=== PATIENT | male | born 1995 | race Caucasian/White ===

== ENCOUNTER 2016-07-28 12:42 | Emergency (ER) | payer SELFPAY ==
[~2016-07-28] VITALS: Ht 182.9 cm; Wt 63.5 kg
[~2016-07-28 12:42] MED LIST: OMEP40CA36 PO; ONDA8TAB13 PO; SULF1TAB35 PO
[2016-07-28 13:07] VITALS: BP 124/74
--- NOTE | 2016-07-28 13:29 | Diagnostic Imaging Report ---
INDICATION: Right ankle pain. AP, oblique, and lateral views of the right ankle are obtained. No fracture or acute bony abnormality is seen. IMPRESSION: Negative right ankle. Dictated by: Dictated on workstation # [id number]
--- NOTE | 2016-07-28 13:42 | ED Lower Extremity ---
General Chief Complaint: Lower Extremity Stated Complaint: R FOOT PAIN Nursing Triage Note: PT REPORTS HE WAS "PLAYING WITH FRIENDS" ON WEDNESDAY AND ROLLED HIS ANKLE. PT AMBULATES WITHOUT ASSISTANCE. Nursing Sepsis Screen: No Definite Risk History of Present Illness Time seen by provider: 13:30 Initial Comments Patient reports rolling his ankle on 07/26/16. He has been able to continue with normal ADLs and work, minimal discomfort in the right ankle. 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 He is taking ibuprofen for the pain in his right ankle. He reports spraining his ankle one time in [employer]. No other injuries to his right ankle. He has an ankle brace that he has been wearing, he reports that it is helping with the discomfort. Onset: other (2 days ago) Pain/Injury Location: right ankle Method of Injury: twisted Modifying Factors: Improves With Cold Therapy, Improves With Immobilization, Improves With Pain Medication (ibuprofen 600 mg every 6-8 hours), Improves With Rest Allergies and Home Medications Allergies Coded Allergies: No Known Allergies (Verified Allergy, Unknown, 06/16/06) Home Medications Sulfamethoxazole/Trimethoprim 1 Each Tablet, 1 EACH PO BID, #14 Ref 0 Prescribed by: MARIA TERESA MANCIA on 02/03/161801 Date Seen by Provider: Jul 28, 2016 Time Seen by Provider: 13:30 Constitutional: no symptoms reported, see HPI EENTM: no symptoms reported, see HPI Respiratory: no symptoms reported, see HPI Cardiovascular: no symptoms reported, see HPI Gastrointestinal: no symptoms reported, see HPI Genitourinary: no symptoms reported, see HPI Musculoskeletal: see HPI, joint pain (right ankle), joint swelling, muscle pain Skin: no symptoms reported, see HPI Psychiatric/Neurological: No Symptoms Reported, See HPI All Other Systems Reviewed Negative Unless Noted: Yes Past Brzlukn-Onsktf-Kkmucw Hx Patient Social History Alcohol Use: Denies Use Recreational Drug Use: No Smoking Status: Never a Smoker 2nd Hand Smoke Exposure: No Recent Foreign Travel: No Contact w/Someone Who Travel: No Recent Infectious Disease Expo: No Recent Hopitalizations: No Immunizations Up To Date Tetanus Booster (TDap): Less than 5yrs Surgeries HX Surgeries: No Respiratory Hx Respiratory Disorders: No Cardiovascular Hx Cardiac Disorders: No Neurological Hx Neurological Disorders: No Reproductive System Hx Reproductive Disorders: No Sexually Transmitted Disease: No Genitourinary Hx Genitourinary Disorders: No Gastrointestinal Hx Gastrointestinal Disorders: No Musculoskeletal Hx Musculoskeletal Disorders: No Endocrine Hx Endocrine Disorders: No HEENT HX ENT Disorders: No Loss of Vision: Denies Hearing Impairment: Denies Cancer Hx Cancer: No Psychosocial Hx Psychiatric Problems: Yes Behavioral Health Disorders: ADD/ADHD Integumentary HX Skin/Integumentary Disorder: No Blood Transfusions Hx Blood Disorders: No Reviewed Nursing Assessment Reviewed/Agree w Nursing PMH: Yes Family Medical History Significant Family History: No Pertinent Family Hx Family Medial History: Asthma G8 BROTHER Cardiovascular disease 19 MOTHER (neurocardiogenic syncope) No Family History of: Cataracts Physical Exam Vital Signs Vital Sign - Last 12Hours 07/28/16 13:07 Temp 98.1 Pulse 75 Resp 16 B/P (MAP) 124/74 Pulse Ox 98 O2 Delivery Room Air Capillary Refill : Less Than 3 Seconds General Appearance: WD/WN, no apparent distress Neck: full range of motion, normal inspection Cardiovascular: regular rate, rhythm, no edema, no JVD, no murmur Respiratory: chest non-tender, lungs clear, normal breath sounds Ankles: left ankle non-tender, left ankle normal inspection, left ankle normal range of motion, left ankle no evidence of injury, right ankle bone tenderness, right ankle ecchymosis (medial and lateral aspects of the right ankle), right ankle limited range of motion, right ankle pain (over ATFL ), right ankle soft tissue tenderness (lateral ankle), right ankle swelling, right ankle other ( trace laxity with anterior drawer and talar tilt.) Feet: bilateral foot non-tender, bilateral foot normal inspection, bilateral foot normal range of motion, bilateral foot no evidence of injury Neurologic/Tendon: normal sensation, normal motor functions, normal tendon functions, responds to pain, no evidence tendon injury Neurologic/Psychiatric: no motor/sensory deficits, alert, normal mood/affect, oriented x 3 Skin: normal color, warm/dry Progress/Results/Core Measures Results/Orders My Orders Orders - NORRIS SPAULDING Ankle, Right, 3 Views (07/28/16 13:05) Vital Signs/I&O Vital Sign - Last 12Hours 07/28/16 13:07 Temp 98.1 Pulse 75 Resp 16 B/P (MAP) 124/74 Pulse Ox 98 O2 Delivery Room Air Blood Pressure Mean: 91 Diagnostic Imaging Diagonstic Imaging: Xray Plain Films/CT/US/NM/MRI: ankle Comments NAME: NUHA DAUGHERTY [facility] REC#: [id number] PT STATUS: REG ER : 1995 PHYSICIAN: NORRIS SAPULDING ADMIT DATE: 07/28/16/ER Draft Date of Exam:07/28/16 ANKLE, RIGHT, 3 VIEWS INDICATION: Right ankle pain. AP, oblique, and lateral views of the right ankle are obtained. No fracture or acute bony abnormality is seen. IMPRESSION: Negative right ankle. Dictated on workstation # [id number] Dict: 07/28/16 1326 Trans: 07/28/16 1328 [id number] Interpreted by: WILFRIDO ZARATE MD Electronically signed by: Departure Impression Impression: Primary Impression: Right ankle sprain Qualified Codes: S93.431A - Sprain of tibiofibular ligament of right ankle, initial encounter Disposition: HOME, SELF-CARE Condition: Stable Departure-Patient Inst. Decision time for Depature: 13:35 Referrals: NO,LOCAL PHYSICIAN (PCP/Family) Primary Care Physician Patient Instructions: Ankle Sprain (DC) Add. Discharge Instructions: Ice to right ankle 20 minutes every 2 hours. Alternate between Tylenol 650 mg and ibuprofen 600 mg every 4 hours. Elevate right ankle higher than the heart for 20-30 minutes every 2 hours. Continue to wear Garret wrap and ankle brace for approximately 2-3 weeks. Then wean out of it. Follow-up in 2 weeks with primary care provider if symptoms are not improving. Return to emergency department for new injury to the ankle, new problems or concerns. All discharge instructions reviewed with patient and/or family. Voiced understanding. Work/School Note: Work Release Form Date Seen in the Emergency Department: Jul 28, 2016 Return to Work: Jul 29, 2016 Restrictions: No Restrictions Other Restrictions Listed Below: Ice and elevate right ankle on breaks NORRIS SPAULDING Jul 28, 2016 13:42
== END 2016-07-28 13:46 | disposition home or self-care (01) ==
LOC: EDUNIT# 12:42 → ER 12:44
DX: S93.401A Sprain of unspecified ligament of right ankle, initial encounter (principal); X50.1XXA Overexertion from prolonged static or awkward postures, initial encounter; Y93.89 Activity, other specified
CPT/HCPCS: 73610; 99283

== ENCOUNTER 2017-02-24 12:20 | Emergency (ER) | payer SELFPAY ==
[~2017-02-24] VITALS: Ht 182.9 cm; Wt 65.8 kg
[2017-02-24] MEDS ORDERED: IBUPROFEN TABLET 200 MG TAB PO STA (12:46)
--- NOTE | 2017-02-24 13:10 | ED Cough/URI ---
General Chief Complaint: Cough/Cold/Flu Symptoms Stated Complaint: FEVER/COUGH/N/V Nursing Triage Note: ARRIVED VIA AMB TO ROOM 09. STATES HE THINKS HE HAS THE FLU. COMPLAINS OF FEVER AND COUGH ET STATES HE VOMITED ONCE TODAY. FEVER STARTING YESTERDAY. History of Present Illness Time seen by provider: 12:55 Initial Comments 21 year old male presents for cough and fever. He had nausea yesterday and vomited once earlier today. He denies nausea at this time. He did not receive an influenza vaccine this year. Timing/Duration: yesterday Severity/Quality: moderate, productive cough Prior Episodes/Possible Cause: no prior episodes Modifying Factors: Improves With Coughing, Improves With Rest Associated Symptoms: cough, fever/chills, nasal congestion Allergies and Home Medications Allergies Coded Allergies: No Known Allergies (Verified Allergy, Unknown, 06/16/06) Home Medications No Active Prescriptions or Reported Meds Constitutional: see HPI, fever, malaise EENTM: no symptoms reported, nose congestion Respiratory: see HPI, cough, phlegm Cardiovascular: no symptoms reported, see HPI Gastrointestinal: see HPI, loss of appetite, nausea Genitourinary: no symptoms reported, see HPI All Other Systems Reviewed Negative Unless Noted: Yes Past Gtryivz-Dwlygm-[place] Hx Patient Social History Alcohol Use: Occasionally Uses Alcohol Beverage of Choice: Whiskey Recreational Drug Use: No Smoking Status: Current Everyday Smoker 2nd Hand Smoke Exposure: No Recent Foreign Travel: No Contact w/Someone Who Travel: No Recent Infectious Disease Expo: No Recent Hopitalizations: No Immunizations Up To Date Tetanus Booster (TDap): Less than 5yrs Surgeries History of Surgeries: No Respiratory History of Respiratory Disorde: No Cardiovascular History of Cardiac Disorders: No Neurological History of Neurological Disord: No Reproductive System Hx Reproductive Disorders: No Sexually Transmitted Disease: No Genitourinary History of Genitourinary Disor: No Gastrointestinal History of Gastrointestinal Di: No Musculoskeletal History of Musculoskeletal Dis: No Endocrine History of Endocrine Disorders: No HEENT Loss of Vision: Denies Hearing Impairment: Denies Cancer History of Cancer: No Psychosocial History of Psychiatric Problem: Yes Behavioral Health Disorders: ADD/ADHD Integumentary History of Skin or Integumenta: No Blood Transfusions History of Blood Disorders: No Reviewed Nursing Assessment Reviewed/Agree w Nursing PMH: Yes Family Medical History Significant Family History: No Pertinent Family Hx Family Medial History: Asthma G8 BROTHER Cardiovascular disease 19 MOTHER (neurocardiogenic syncope) No Family History of: Cataracts Physical Exam Vital Signs Vital Sign - Last 12Hours 02/24/17 12:31 Temp 100.5 Pulse 95 Resp 18 B/P (MAP) 118/80 (93) Pulse Ox 96 O2 Delivery Room Air Capillary Refill : Less Than 3 Seconds General Appearance: WD/WN, no apparent distress Eyes: Bilateral Eye Normal Inspection, Bilateral Eye PERRL, Bilateral Eye EOMI HEENT: PERRL/EOMI, normal ENT inspection, TMs normal, pharynx normal Neck: non-tender, full range of motion, supple, No lymphadenopathy (R), No lymphadenopathy (L) Respiratory: chest non-tender, no respiratory distress, no accessory muscle use Cardiovascular: normal peripheral pulses, regular rate, rhythm, no murmur Gastrointestinal: normal bowel sounds, non tender, soft, No distended, No guarding, No rebound, No tenderness Neurologic/Psychiatric: no motor/sensory deficits, alert, normal mood/affect ( appropriate for age), oriented x 3 Skin: normal color, warm/dry Lymphatic: no adenopathy Progress/Results/Core Measures Suspected Sepsis Recent Fever Within 48 Hours: Yes Infection Criteria Present: Suspected New Infection New/Unexplained Altered Menta: No Sepsis Screen: Possible Sepsis Risk Sepsis Diagnosis: SIRS Temperature:100.5 Pulse: 95 Respiratory Rate: 18 Blood Pressure 118 /80 Mean: 93 Results/Orders Micro Results Microbiology 02/24/17 Influenza Types A,B Antigen ([facility]) - Final, Complete My Orders Orders - NORRIS SPAULDING Ibuprofen Tablet (Motrin Tablet) (02/24/17 12:46) Influenza A And B Antigens (02/24/17 12:46) Vital Signs/I&O Vital Sign - Last 12Hours 02/24/17 02/24/17 12:31 13:15 Temp 100.5 100.1 Pulse 95 95 Resp 18 18 B/P (MAP) 118/80 (93) Pulse Ox 96 96 O2 Delivery Room Air Capillary Refill : Less Than 3 Seconds Blood Pressure Mean: 93 Progress Note : Time: 12:55 Progress Note Initial evaluation completed, influenza swab, ibuprofen 600 mg by mouth. 1305 discussed influenza A results with the patient and his mother, offered Tamiflu for conservative treatment. They opted for conservative options. Discharge and return precautions reviewed with patient and his mother. All questions answered. Departure Impression Impression: Primary Impression: Influenza A Additional Impression: Fever Qualified Codes: R50.81 - Fever presenting with conditions classified elsewhere Disposition: 01 HOME, SELF-CARE Condition: Stable Departure-Patient Inst. Decision time for Depature: 13:10 Referrals: NO,LOCAL PHYSICIAN (PCP/Family) Primary Care Physician Patient Instructions: Fever, Adult (DC), Flu, Adult (DC), Viral Upper Respiratory Infection, Adult (DC) Add. Discharge Instructions: Alternate Tylenol 650 mg and ibuprofen 600 mg every 4 hours. Rest. Increase fluid intake. Avoid social crowds and don't share drinks/utensils. Follow-up with primary care provider if no improvement in symptoms in 2-3 days. Return to emergency department if difficulty breathing, fever greater than 101 not relieved by Tylenol or ibuprofen, new problems or concerns. All discharge instructions reviewed with patient and/or family. Voiced understanding. Scripts No Active Prescriptions or Reported Meds NORRIS SPAULDING Feb 24, 2017 13:10
[2017-02-24 13:15] VITALS: BP 118/80
== END 2017-02-24 13:15 | disposition home or self-care (01) ==
LOC: EDUNIT# 12:20 → ER 12:22
DX: J10.1 Influenza due to other identified influenza virus with other respiratory manifestations (principal); F90.9 Attention-deficit hyperactivity disorder, unspecified type; F17.200 Nicotine dependence, unspecified, uncomplicated; Z82.49 Family history of ischemic heart disease and other diseases of the circulatory system
CPT/HCPCS: 87804; 99283

== ENCOUNTER 2017-04-24 17:42 | Emergency (ER) | payer SELFPAY ==
[~2017-04-24] VITALS: Ht 182.9 cm; Wt 66.0 kg
--- OUTSIDE RECORDS SUMMARY | 2017-04-24 17:48 | XMS REPORT ---
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 Name Role Phone LIZA RODRIGUEZ Unavailable PROBLEMS Type Condition ICD9-CM Code [id number] Code Onset Dates Condition Status SNOMED Code Problem Seasonal allergic rhinitis, unspecified allergic rhinitis trigger J30.2 Active [id number] ALLERGIES No Known Allergies SOCIAL HISTORY Never Assessed PLAN OF CARE Activity Details Follow Up prn Reason: VITAL SIGNS Weight 136 lbs 2016-07-11 Temperature 98.2 degrees Fahrenheit 2016-07-11 Heart Rate 80 bpm 2016-07-11 Respiratory Rate 20 2016-07-11 Blood pressure systolic 114 mmHg 2016-07-11 Blood pressure diastolic 80 mmHg 2016-07-11 MEDICATIONS Medication Instructions Dosage Frequency Start Date End Date Duration Status Fluticasone Propionate 50 MCG/ACT Nasally Once a day 1 spray in each nostril 24h June, 30 day(s) Active Zyrtec Allergy 10 MG Orally Once a day 1 tablet 24h June, Jul, 30 day(s) Active RESULTS No Results PROCEDURES Procedure Date Ordered Result Body Site DEPO MEDROL 40 MG/ML July 11, 2016 THER/PROPH/DIAG INJ, SC/IM July 11, 2016 DEXAMETHASONE 4MG/ML (PER 1 MG) July 11, 2016 IMMUNIZATIONS Vaccine Route Administration Date Status DEXAMETHASONE 4MG/ML (PER 1 MG) IM Intramuscular July 11, 2016 Administered DEPO MEDROL 40 MG/ML IM Intramuscular July 11, 2016 Administered MEDICAL (GENERAL) HISTORY Type Description Date Surgical History Oral surgery--- blood clot 2005
--- OUTSIDE RECORDS SUMMARY | 2017-04-24 17:48 | XMS REPORT | Continuity of Care Document ---
Author Author [facility] Organization [facility] Address Unknown Phone Unavailable Allergies Active Description Code Type Severity Reaction Onset Reported/Identified Relationship to Patient Clinical Status Yes NKANo Known Allergies NKA Miscellaneous Allergy Unknown N/A 06/16/2006 Medications There is no data. 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, UNSPECIFIED 10/24/2013 SCOTT MARTINEZ APRN Ot 525.9 DENTAL DISORDER NOS 11/13/2015 MARIA TERESA DUENAS Ot E86.9 VOLUME DEPLETION, UNSPECIFIED 11/13/2015 MARIA TERESA DUENAS Ot F10.10 ALCOHOL ABUSE, UNCOMPLICATED 11/13/2015 MARIA TERESA DUENAS Ot F11.10 OPIOID ABUSE, UNCOMPLICATED 11/13/2015 MARIA TERESA DUENAS Ot F12.10 CANNABIS ABUSE, UNCOMPLICATED 11/13/2015 MARIA TERESA DUENAS Ot K22.6 GASTRO-ESOPHAGEAL LACERATION-HEMORRHAGE 11/13/2015 MARIA TERESA DUENAS Ot K92.0 HEMATEMESIS 11/13/2015 MARIA TERESA DUENAS Ot E86.9 VOLUME DEPLETION, UNSPECIFIED 11/13/2015 MARIA TERESA DUENAS Ot F10.10 ALCOHOL ABUSE, UNCOMPLICATED 11/13/2015 MARIA TERESA DUENAS Ot F11.10 OPIOID ABUSE, UNCOMPLICATED 11/13/2015 MARIA TERESA DUENAS Ot F12.10 CANNABIS ABUSE, UNCOMPLICATED 11/13/2015 MARIA TERESA DUENAS Ot K22.6 GASTRO-ESOPHAGEAL LACERATION-HEMORRHAGE 11/13/2015 MARIA TERESA DUENAS Ot K92.0 HEMATEMESIS 11/15/2015 MARIA TERESA DUENAS Ot E86.9 VOLUME DEPLETION, UNSPECIFIED 11/15/2015 MARIA TERESA DUENAS Ot F10.10 ALCOHOL ABUSE, UNCOMPLICATED 11/15/2015 MARIA TERESA DUENAS Ot F11.10 OPIOID ABUSE, UNCOMPLICATED 11/15/2015 MARIA TERESA DUENAS Ot F12.10 CANNABIS ABUSE, UNCOMPLICATED 11/15/2015 MARIA TERESA DUENAS Ot K22.6 GASTRO-ESOPHAGEAL LACERATION-HEMORRHAGE 11/15/2015 MARIA TERESA DUENAS Ot K92.0 HEMATEMESIS 11/19/2015 MARIA TERESA DUENAS Ot E86.9 VOLUME DEPLETION, UNSPECIFIED 11/19/2015 MARIA TERESA DUENAS Ot F10.10 ALCOHOL ABUSE, UNCOMPLICATED 11/19/2015 MARIA TERESA DUENAS Ot F11.10 OPIOID ABUSE, UNCOMPLICATED 11/19/2015 MARIA TERESA DUENAS Ot F12.10 CANNABIS ABUSE, UNCOMPLICATED 11/19/2015 MARIA TERESA DUENAS Ot K22.6 GASTRO-ESOPHAGEAL LACERATION-HEMORRHAGE 11/19/2015 MARIA TERESA DUENAS Ot K92.0 HEMATEMESIS 02/04/2016 MARIA TERESA DUENAS Ot L02.214 CUTANEOUS ABSCESS OF GROIN 07/28/2016 JASSON, NORRIS HOME PERFORMANCE LABORER Ot M79.671 PAIN IN RIGHT FOOT 07/28/2016 JASSON, NORRIS HOME PERFORMANCE LABORER Ot S93.401A SPRAIN OF UNSPECIFIED LIGAMENT OF RIGHT 07/28/2016 JASSON, NORRIS HOME PERFORMANCE LABORER Ot X50.1XXA OVEREXERTION FROM PROLONGED STATIC OR AW 07/28/2016 JASSON, NORRIS HOME PERFORMANCE LABORER Ot Y93.89 ACTIVITY, OTHER SPECIFIED 07/30/2016 JASSON, NORRIS HOME PERFORMANCE LABORER Ot M79.671 PAIN IN RIGHT FOOT 07/30/2016 JASSON, NORRIS HOME PERFORMANCE LABORER Ot S93.401A SPRAIN OF UNSPECIFIED LIGAMENT OF RIGHT 07/30/2016 JASSON, NORRIS HOME PERFORMANCE LABORER Ot X50.1XXA OVEREXERTION FROM PROLONGED STATIC OR AW 07/30/2016 JASSON, NORRIS HOME PERFORMANCE LABORER Ot Y93.89 ACTIVITY, OTHER SPECIFIED 07/30/2016 JASSON, NORRIS HOME PERFORMANCE LABORER Ot M79.671 PAIN IN RIGHT FOOT 07/30/2016 JASSON, NORRIS HOME PERFORMANCE LABORER Ot S93.401A SPRAIN OF UNSPECIFIED LIGAMENT OF RIGHT 07/30/2016 JASSON, NORRIS HOME PERFORMANCE LABORER Ot X50.1XXA OVEREXERTION FROM PROLONGED STATIC OR AW 07/30/2016 JASSON, NORRIS HOME PERFORMANCE LABORER Ot Y93.89 ACTIVITY, OTHER SPECIFIED Procedures There is no data. Results Test Result Range Complete blood count (CBC) with automated white blood cell (WBC) differential - 11/13/15 11:01 Blood leukocytes automated count (number/volume) 9.2 10*3/uL 4.3-11.0 Blood erythrocytes automated count (number/volume) 4.53 10*6/uL 4.35-5.85 Venous blood hemoglobin measurement (mass/volume) 14.9 g/dL 13.3-17.7 Blood hematocrit (volume fraction) 41 % 40-54 Automated erythrocyte mean corpuscular volume 89 [foz_us] 80-99 Automated erythrocyte mean corpuscular hemoglobin (mass per erythrocyte) 33 pg 25-34 Automated erythrocyte mean corpuscular hemoglobin concentration measurement ( mass/volume) 37 g/dL 32-36 Automated erythrocyte distribution width ratio 11.6 % 10.0-14.5 Automated blood platelet count (count/volume) 184 10*3/uL 130-400 Automated blood platelet mean volume measurement 9.3 [foz_us] 7.4-10.4 Automated blood neutrophils/100 leukocytes 72 % 42-75 Automated blood lymphocytes/100 leukocytes 12 % 12-44 Blood monocytes/100 leukocytes 15 % 0-12 Automated blood eosinophils/100 leukocytes 0 % 0-10 Automated blood basophils/100 leukocytes 0 % 0-10 Blood neutrophils automated count (number/volume) 6.6 10*3 1.8-7.8 Blood lymphocytes automated count (number/volume) 1.1 10*3 1.0-4.0 Blood monocytes automated count (number/volume) 1.4 10*3 0.0-1.0 Automated eosinophil count 0.0 10*3/uL 0.0-0.3 Automated blood basophil count (count/volume) 0.0 10*3/uL 0.0-0.1 Comprehensive metabolic panel - 11/13/15 11:01 Serum or plasma sodium measurement (moles/volume) 141 mmol/L 135-145 Serum or plasma potassium measurement (moles/volume) 4.1 mmol/L 3.6-5.0 Serum or plasma chloride measurement (moles/volume) 108 mmol/L 98-107 Carbon dioxide 27 mmol/L 21-32 Serum or plasma anion gap determination (moles/volume) 6 mmol/L 5-14 Serum or plasma urea nitrogen measurement (mass/volume) 11 mg/dL 7-18 Serum or plasma creatinine measurement (mass/volume) 1.45 mg/dL 0.60-1.30 Serum or plasma urea nitrogen/creatinine mass ratio 8 NRG Serum or plasma creatinine measurement with calculation of estimated glomerular filtration rate > NRG Serum or plasma glucose measurement (mass/volume) 99 mg/dL 70-105 Serum or plasma calcium measurement (mass/volume) 9.1 mg/dL 8.5-10.1 Serum or plasma total bilirubin measurement (mass/volume) 1.0 mg/dL 0.1-1.0 Serum or plasma alkaline phosphatase measurement (enzymatic activity/volume) 76 U/L 40-136 Serum or plasma aspartate aminotransferase measurement (enzymatic activity/ volume) 25 U/L 5-34 Serum or plasma alanine aminotransferase measurement (enzymatic activity/volume ) 12 U/L 0-55 Serum or plasma protein measurement (mass/volume) 7.4 g/dL 6.4-8.2 Serum or plasma albumin measurement (mass/volume) 4.2 g/dL 3.2-4.5 Lipase - 11/13/15 11:01 Lipase 7 U/L 8-78 Urine drug screening test - 11/13/15 12:24 Urine phencyclidine detection by screening method NEGATIVE NEGATIVE Urine benzodiazepines detection by screening method NEGATIVE NEGATIVE Urine cocaine detection POSITIVE NEGATIVE Urine amphetamines detection by screening method NEGATIVE NEGATIVE Urine methamphetamine detection by screening method NEGATIVE NEGATIVE Urine cannabinoids detection by screening method POSITIVE NEGATIVE Urine opiates detection by screening method NEGATIVE NEGATIVE Urine barbiturates detection NEGATIVE NEGATIVE Screening urine tricyclic antidepressants detection NEGATIVE NEGATIVE Urine methadone detection by screening method NEGATIVE NEGATIVE Urine oxycodone detection NEGATIVE NEGATIVE Urine propoxyphene detection NEGATIVE NEGATIVE Urine buprenophrine screen NEGATIVE NEGATIVE Complete urinalysis with reflex to culture - 11/13/15 12:24 Urine color determination YELLOW NRG Urine clarity determination CLEAR NRG Urine pH measurement by test strip 7 5-9 Specific gravity of urine by test strip 1.010 1.016- 1.022 Urine protein assay by test strip, semi-quantitative 3+ NEGATIVE Urine glucose detection by automated test strip NEGATIVE NEGATIVE Erythrocytes detection in urine sediment by light microscopy 2+ NEGATIVE Urine ketones detection by automated test strip NEGATIVE NEGATIVE Urine nitrite detection by test strip NEGATIVE NEGATIVE Urine total bilirubin detection by test strip NEGATIVE NEGATIVE Urine urobilinogen measurement by automated test strip (mass/volume) NORMAL NORMAL Urine leukocyte esterase detection by dipstick NEGATIVE NEGATIVE Automated urine sediment erythrocyte count by microscopy (number/high power field) [HPF] NRG Automated urine sediment leukocyte count by microscopy (number/high power field ) RARE NRG Bacteria detection in urine sediment by light microscopy TRACE NRG Squamous epithelial cells detection in urine sediment by light microscopy 2-5 NRG Crystals detection in urine sediment by light microscopy NONE NRG Casts detection in urine sediment by light microscopy NONE NRG Mucus detection in urine sediment by light microscopy NEGATIVE NRG Complete urinalysis with reflex to culture NO NRG Gram stain microscopy - 02/03/16 17:55 Bacteria identification in wound by culture - 02/03/16 17:55 Bacteria identification in wound by culture [id number] NRG FREE TEXT EXTERNAL SENSITIVITY REPORTED 02/04/16 15:40 NRG QUANTITY OF GROWTH Moderate Growth NRG MRSA AGAR MRSA isolated (Screening test for MRSA is positive) NRG CALL POSITIVES (F1 HELP) CALLED TO [facility] ER 02/03 13:15 NRG Bacterial susceptibility panel - 02/03/16 17:55 Oxacillin susceptibility test by minimum inhibitory concentration > = NRG Gentamicin susceptibility test by minimum inhibitory concentration < = NRG Clindamycin susceptibility test by minimum inhibitory concentration <= NRG Erythromycin susceptibility test by minimum inhibitory concentration <= NRG Trimethoprim/sulfamethoxazole susceptibility test by minimum inhibitoryconcentration <= NRG Vancomycin susceptibility test by minimum inhibitory concentration 1 NRG Levofloxacin susceptibility test by minimum inhibitory concentration 0.25 NRG Rifampin susceptibility test by minimum inhibitory concentration <= NRG Tetracycline susceptibility test by minimum inhibitory concentration <= NRG Influenza virus A and B antigen detection - 02/24/17 12:45 CALL POSITIVES (F1 HELP) ASHLI NRG FLU RESULT POSITIVE FOR INFLUENZA A ANTIGEN, NEG FOR B ANTIGEN, BY IA NRG Encounters ACCT No. Visit Date/Time Discharge Status Pt. Type Provider Facility Loc./Unit Complaint [id number] 02/24/2017 12:22:00 02/24/2017 13:15:00 DIS Emergency JASSONNORRIS Mcgarry [facility] ER FEVER/COUGH/N/V [id number] 07/28/2016 12:44:00 07/28/2016 13:46:00 DIS Emergency JASSONNORRIS Mcgarry [facility] ER R FOOT PAIN [id number] 02/03/2016 17:01:00 02/03/2016 18:18:00 DIS Outpatient MARIA TERESA DUENAS [facility] ER SPIDER BITE [id number] 11/13/2015 10:23:00 11/13/2015 13:55:00 DIS Emergency MARIA TERESA DUENAS [facility] ER VOMITING BLOOD [id number] 10/24/2013 17:03:00 10/24/2013 19:31:00 DIS Emergency SCOTT MARTINEZ APRN [facility] ER DENTAL SWELLING [id number] 04/24/2017 17:44:00 ACT Emergency JANIYA JJ, DUNCAN Marrufo [facility] ER LAC R INDEX FINGER
[2017-04-24] MEDS ORDERED: CEPH500T PO (18:42)
[2017-04-24] MEDS ORDERED: LIDOCAINE 1% INJ 20 ML (XYLOCAINE) VIAL INJ STA (18:44)
[2017-04-24] MEDS ORDERED: TETANUS,DIPTH,PERTUSS P/F (BOOSTRIX) 0.5 ML VIAL IM STA (18:44)
--- NOTE | 2017-04-24 18:44 | ED Upper Extremity ---
General Chief Complaint: Laceration Stated Complaint: LAC R INDEX FINGER Nursing Triage Note: PT HAS APPROX 1 CM LAC TO R INDEX FINGER Nursing Sepsis Screen: No Definite Risk Source: patient Exam Limitations: no limitations History of Present Illness Date Seen by Provider: Apr 24, 2017 Time Seen by Provider: 18:28 Initial Comments Here with laceration to the right index finger volar surface at the mid phalanx centrally. Approximately 2 cm. Denies other injury or concerns. Laceration occurred while pulling weeds while fishing. Onset: just prior to arrival Severity: mild Pain/Injury Location: right 2nd finger Method of Injury: incised Modifying Factors: Improves With Immobilization, Worse With Movement, Improves With Rest Allergies and Home Medications Allergies Coded Allergies: No Known Allergies (Verified Allergy, Unknown, 06/16/06) Home Medications Cephalexin 500 Mg Tablet, 500 MG PO QID Prescribed by: SHA OGDEN on 04/24/17 1842 Patient Home Medication List Home Medication List Reviewed: Yes Constitutional: see HPI, No fever Respiratory: no symptoms reported Cardiovascular: no symptoms reported Musculoskeletal: No joint pain, muscle pain Skin: see HPI, No change in color, lesions Psychiatric/Neurological: Anxiety, Denies Numbness Past Vmmgxcn-Rokvfe-Rizigh Hx Patient Social History Alcohol Use: Denies Use Number of Drinks Today: GG Alcohol Beverage of Choice: Whiskey Recreational Drug Use: No Smoking Status: Never a Smoker 2nd Hand Smoke Exposure: No Recent Foreign Travel: No Contact w/Someone Who Travel: No Recent Infectious Disease Expo: No Recent Hopitalizations: No Immunizations Up To Date Tetanus Booster (TDap): Less than 5yrs Seasonal Allergies Seasonal Allergies: No Surgeries History of Surgeries: No Respiratory History of Respiratory Disorde: No Cardiovascular History of Cardiac Disorders: No Neurological History of Neurological Disord: No Reproductive System Hx Reproductive Disorders: No Sexually Transmitted Disease: No Genitourinary History of Genitourinary Disor: No Gastrointestinal History of Gastrointestinal Di: No Musculoskeletal History of Musculoskeletal Dis: No Endocrine History of Endocrine Disorders: No HEENT Loss of Vision: Denies Hearing Impairment: Denies Cancer History of Cancer: No Psychosocial History of Psychiatric Problem: Yes Behavioral Health Disorders: ADD/ADHD Integumentary History of Skin or Integumenta: No Blood Transfusions History of Blood Disorders: No Reviewed Nursing Assessment Reviewed/Agree w Nursing PMH: Yes Family Medical History Significant Family History: No Pertinent Family Hx Family Medial History: Asthma G8 BROTHER Cardiovascular disease 19 MOTHER (neurocardiogenic syncope) No Family History of: Cataracts Physical Exam Vital Signs Vital Signs - First Documented 04/24/17 18:14 Temp 98.1 Pulse 74 Resp 16 B/P (MAP) 130/84 (99) Pulse Ox 98 O2 Delivery Room Air Capillary Refill : Less Than 3 Seconds General Appearance: WD/WN, no apparent distress Cardiovascular: regular rate, rhythm, no murmur Respiratory: lungs clear, normal breath sounds Hand: normal ROM, Right, laceration, soft tissue tenderness Neurologic/Psychiatric: no motor/sensory deficits, alert, oriented x 3 Skin: normal color, warm/dry, other (2 cm laceration across the volar surface of the mid phalanx on the right index finger) Laceration Repair : Wound Location: Upper Extremities Other Wound Location Right index finger palmar surface Wound Length (cm): 2 Wound's Depth, Shape: superficial, linear Wound Explored: contaminated Irrigated w/ Saline (ccs): 200 Betadine Prep?: Yes Anesthesia: 1% Lidocaine Wound Debrided: minimal Suture: Prolene Suture Size: 4-0 Number of Sutures: 4 Layer Closure?: 1 Number Deep Layer Sutures: 0 Sterile Dressing Applied?: Yes Progress Digital block with 3 mL of lidocaine with excellent anesthesia. Wound closed with simple interrupted sutures. Covered with antibiotic ointment and dressing. Tolerated procedure well. No complications. Progress/Results/Core Measures Results/Orders My Orders Orders - SHA OGDEN MD Dipht,Pertashiwn(Acell),Tet Adult (Boostrix (04/24/17 18:44) Lidocaine 1% Injection (Xylocaine 1% Inj (04/24/17 18:44) Lidocaine 1% (Xylocaine 1%) (04/24/17 19:14) Cephalexin Capsule (Keflex Capsule) (04/24/17 19:17) Vital Signs/I&O Vital Sign - Last 12Hours 04/24/17 18:14 Temp 98.1 Pulse 74 Resp 16 B/P (MAP) 130/84 (99) Pulse Ox 98 O2 Delivery Room Air Blood Pressure Mean: 99 Progress Note : Progress Note Seen and evaluated. Wound flushed with copious saline and Betasept solution. Closed with sutures. Keflex 500 mg by mouth given. Tetanus updated. Discharged home with return precautions. Patient verbalize understanding instructions and agreement with plan. Departure Impression Impression: Primary Impression: Laceration of right index finger w/o foreign body w/o damage to nail Qualified Codes: S61.210A - Laceration without foreign body of right index finger without damage to nail, initial encounter Disposition: HOME, SELF-CARE Condition: Improved Departure-Patient Inst. Decision time for Depature: 18:43 Referrals: NO,LOCAL PHYSICIAN (PCP/Family) Primary Care Physician Patient Instructions: Laceration Repair With Stitches (DC) Add. Discharge Instructions: Send a letter All discharge instructions reviewed with patient and/or family. Voiced understanding. Sutures out in 10 days. Use antibiotic ointment and dressing over the wound once or twice daily for the next several days and then just cover with dry dressing. Protect wound from injury and from getting dirty. Return for worse pain, swelling, redness, red streaks up the hand or arm, foul-smelling drainage or other concerns as needed. You may use ibuprofen 600 mg every 8 hours as needed for pain. You may take Tylenol/acetaminophen 1000 mg every 8 hours as needed for pain. It is okay to shower but do not soak wound in any body of water. Scripts Cephalexin (Cephalexin) 500 Mg Tablet 500 MG PO QID, #20 TAB 0 Refills Prov: SHA OGDEN MD 04/24/17 SHA OGDEN MD Apr 24, 2017 18:44
[2017-04-24] MEDS ORDERED: LIDOCAINE 1% INJ 50 ML (XYLOCAINE) VIAL ONE (19:14)
[2017-04-24] MEDS ORDERED: CEPHALEXIN 250 MG (KEFLEX) CAP PO STA (19:17)
[2017-04-24 20:00] VITALS: BP 0/0
== END 2017-04-24 20:00 | disposition home or self-care (01) ==
LOC: EDUNIT# 17:42 → ER 17:44
DX: S61.220A Laceration with foreign body of right index finger without damage to nail, initial encounter (principal); F90.9 Attention-deficit hyperactivity disorder, unspecified type; Z23 Encounter for immunization; W26.8XXA Contact with other sharp object(s), not elsewhere classified, initial encounter
CPT/HCPCS: 12013; 90715

== ENCOUNTER 2018-08-11 08:41 | Emergency (ER) | payer SELFPAY ==
[~2018-08-11] VITALS: Ht 182.9 cm; Wt 63.5 kg
[~2018-08-11 08:41] MED LIST changes: +CEPH500T PO
--- OUTSIDE RECORDS SUMMARY | 2018-08-11 08:48 | XMS REPORT ---
Author Author HEATHER DASH Organization [facility] Address [address] [place] [address] Care Team Providers Care Residential Manager Name Role Phone ROJOTOBI WUHEATHER DURAN Unavailable PROBLEMS Type Condition ICD9-CM Code [id number] Code Onset Dates Condition Status SNOMED Code Problem Seasonal allergic rhinitis, unspecified allergic rhinitis trigger J30.2 Active [id number] ALLERGIES No Known Allergies ENCOUNTERS Encounter Location Date Diagnosis [facility] [id number] [address] Oct, Acute conjunctivitis of right eye, unspecified acute conjunctivitis type H10.31 [facility] [address] [id number] [address] June, Seasonal allergic rhinitis, unspecified allergic rhinitis trigger J30.2 IMMUNIZATIONS No Known Immunizations SOCIAL HISTORY Never Assessed REASON FOR VISIT Right Eye irritation that started two days ago with his eye matted shut, eye is red and runny.--DIANE George PLAN OF CARE Activity Details Follow Up prn Reason: VITAL SIGNS Height 72 in 2017-11-01 Weight 132 lbs 2017-11-01 Temperature 98.9 degrees Fahrenheit 2017-11-01 Heart Rate 84 bpm 2017-11-01 Respiratory Rate 18 2017-11-01 BMI 17.90 kg/m2 2017-11-01 Blood pressure systolic 124 mmHg 2017-11-01 Blood pressure diastolic 76 mmHg 2017-11-01 MEDICATIONS Medication Instructions Dosage Frequency Start Date End Date Duration Status Neomycin-Bacitracin Zn-Polymyx [id number] Ophthalmic every 4 hrs 1 application 4h Oct, Oct, 10 day(s) Active Fluticasone Propionate 50 MCG/ACT Nasally Once a day 1 spray in each nostril 24h June, 30 day(s) Not-Taking RESULTS No Results PROCEDURES No Known procedures INSTRUCTIONS MEDICATIONS ADMINISTERED No Known Medications MEDICAL (GENERAL) HISTORY Type Description Date Medical History DVT as a child Medical History ADHD Surgical History Oral surgery--- blood clot 2005
--- OUTSIDE RECORDS SUMMARY | 2018-08-11 08:48 | XMS REPORT ---
Author Author ELENA DUARTE Organization [facility] Address [address] [place] [address] Care Team Providers Care Skiver Machine Name Role Phone ELENA DUARTE Unavailable PROBLEMS Type Condition ICD9-CM Code [id number] Code Onset Dates Condition Status SNOMED Code Problem Seasonal allergic rhinitis, unspecified allergic rhinitis trigger J30.2 Active [id number] ALLERGIES No Known Allergies ENCOUNTERS Encounter Location Date Diagnosis [facility] [id number] [place] [id number] Jan, Acute sinusitis J01.90 [facility] [id number] [place] [phone] Oct, Acute conjunctivitis of right eye, unspecified acute conjunctivitis type H10.31 [facility] [id number] [place] [phone] June, Seasonal allergic rhinitis, unspecified allergic rhinitis trigger J30.2 IMMUNIZATIONS No Known Immunizations SOCIAL HISTORY Never Assessed REASON FOR VISIT congestion, cough with mucus production, symptoms x2 days - DIANE [place] PLAN OF CARE Activity Details Follow Up if not improving with PCP or reg follow up Reason: VITAL SIGNS Height 72 in 2018-01-28 Weight 133.8 lbs 2018-01-28 Temperature 98.6 degrees Fahrenheit 2018-01-28 Heart Rate 88 bpm 2018-01-28 Respiratory Rate 18 2018-01-28 BMI 18.14 kg/m2 2018-01-28 Blood pressure systolic 110 mmHg 2018-01-28 Blood pressure diastolic 70 mmHg 2018-01-28 MEDICATIONS Medication Instructions Dosage Frequency Start Date End Date Duration Status Fluticasone Propionate 50 MCG/ACT Nasally Once a day 1 spray in each nostril 24h June, 30 day(s) Not-Taking PredniSONE 20 MG Orally Once a day 2 tablet 24h Jan, 5 days Active RESULTS No Results PROCEDURES No Known procedures INSTRUCTIONS MEDICATIONS ADMINISTERED No Known Medications MEDICAL (GENERAL) HISTORY Type Description Date Medical History DVT as a child Medical History ADHD Surgical History Oral surgery--- blood clot 2006
--- OUTSIDE RECORDS SUMMARY | 2018-08-11 08:49 | XMS REPORT | Continuity of Care Document ---
Author Organization Unknown Address Unknown Allergies Active Description Code Type Severity Reaction Onset Reported/Identified Relationship to Patient Clinical Status Yes NKANo Known Allergies NKA Miscellaneous Allergy Unknown N/A 06/16/2006 Medications There is no data. 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, UNSPECIFIED 10/24/2013 SCOTT MARTINEZ APPRENTICE ARCHITECT Ot 525.9 DENTAL DISORDER NOS 11/13/2015 MARIA [...] TERESA DUENAS Ot K92.0 HEMATEMESIS 11/15/2015 MARIA TREESA DUENAS Ot E86.9 VOLUME DEPLETION, UNSPECIFIED 11/15/2015 [...] CUTANEOUS ABSCESS OF GROIN 07/28/2016 JASSON, NORRIS SOLID DIE CUTTER Ot M79.671 PAIN IN RIGHT FOOT 07/28/2016 JASSON, NORRIS SOLID DIE CUTTER Ot S93.401A SPRAIN OF UNSPECIFIED LIGAMENT OF RIGHT 07/28/2016 JASSON, NORRIS SOLID DIE CUTTER Ot X50.1XXA OVEREXERTION FROM PROLONGED STATIC OR AW 07/28/2016 JASSON, NORRIS SOLID DIE CUTTER Ot Y93.89 ACTIVITY, OTHER SPECIFIED 07/30/2016 JASSON, NORRIS SOLID DIE CUTTER Ot M79.671 PAIN IN RIGHT FOOT 07/30/2016 JASSON, NORRIS SOLID DIE CUTTER Ot S93.401A SPRAIN OF UNSPECIFIED LIGAMENT OF RIGHT 07/30/2016 JASSON, NORRIS SOLID DIE CUTTER Ot X50.1XXA OVEREXERTION FROM PROLONGED STATIC OR AW 07/30/2016 JASSON, NORRIS SOLID DIE CUTTER Ot Y93.89 ACTIVITY, OTHER SPECIFIED 07/30/2016 JASSON, NORRIS SOLID DIE CUTTER Ot M79.671 PAIN IN RIGHT FOOT 07/30/2016 JASSON, NORRIS SOLID DIE CUTTER Ot S93.401A SPRAIN OF UNSPECIFIED LIGAMENT OF RIGHT 07/30/2016 JASSON, NORRIS SOLID DIE CUTTER Ot X50.1XXA OVEREXERTION FROM PROLONGED STATIC OR AW 07/30/2016 JASSON, NORRIS SOLID DIE CUTTER Ot Y93.89 ACTIVITY, OTHER SPECIFIED 02/24/2017 JASSON, NORRIS SOLID DIE CUTTER Ot F17.200 NICOTINE DEPENDENCE, UNSPECIFIED, UNCOMP 02/24/2017 NORRIS SPAULDING Ot F90.9 ATTENTION- DEFICIT HYPERACTIVITY DISORDER 02/24/2017 NORRIS SPAULDING Ot J10.1 FLU DUE TO OTH IDENT INFLUENZA VIRUS W O 02/24/2017 NORRIS SPAULDINGP Ot R50.9 FEVER, UNSPECIFIED 02/24/2017 NORRIS SPAULDING Ot Z82.49 FAMILY HX OF ISCHEM HEART DIS AND OTH DI 04/24/2017 SHA OGDEN MD, Ot F90.9 ATTENTION-DEFICIT HYPERACTIVITY DISORDER 04/24/2017 SHA OGDEN MD, Ot S61.210A LACERATION W/O FB OF R IDX FNGR W/O JORDIN 04/24/2017 SHA OGDEN MD, Ot S61.220A LACERATION W FB OF R IDX FNGR W/O DAMAGE 04/24/2017 SHA OGDEN MD, Ot W26.8XXA CONTACT WITH OTHER SHARP OBJECT(S), NEC, 04/24/2017 SHA OGDEN MD, Ot Z23 ENCOUNTER FOR IMMUNIZATION Procedures There is no data. Results Test [...] Automated erythrocyte mean corpuscular hemoglobin concentration measurement (mass/volume) 37 g/dL 32-36 Automated erythrocyte distribution width ratio 11.6 % 10.0- 14.5 Automated blood platelet count (count/volume) 184 10*3/uL [...] Blood monocytes automated count (number/volume) 1.4 10*3 0.0- 1.0 Automated eosinophil count 0.0 10*3/uL 0.0-0.3 Automated [...] Serum or plasma aspartate aminotransferase measurement (enzymatic activity/volume) 25 U/L 5-34 Serum or plasma alanine aminotransferase measurement (enzymatic activity/volume) 12 U/L 0-55 Serum or plasma protein [...] gravity of urine by test strip 1.010 1.016-1.022 Urine protein assay by test strip, semi-quantitative [...] sediment leukocyte count by microscopy (number/high power field) RARE NRG Bacteria detection in urine sediment [...] 17:55 Bacteria identification in wound by culture [id number] NRG FREE TEXT EXTERNAL SENSITIVITY REPORTED 02/04/16 15:40 NRG QUANTITY OF GROWTH Moderate Growth NRG MRSA AGAR MRSA isolated (Screening test for MRSA is positive) NRG CALL POSITIVES (F1 HELP) CALLED TO [facility] ER 02/03 13:15 NRG Bacterial susceptibility panel - 02/03/16 17:55 Oxacillin susceptibility test by minimum inhibitory concentration >= NRG Gentamicin susceptibility test by minimum inhibitory concentration <= NRG Clindamycin susceptibility test by minimum inhibitory [...] Status Pt. Type Provider Facility Loc./Unit Complaint [id number] 08/02/2018 16:00:00 08/02/2018 23:59:59 CLS Outpatient [facility] [id number] 04/24/2017 17:44:00 04/24/2017 20:00:00 DIS Emergency SHA OGDEN MD [facility] LAC R INDEX FINGER [id number] 02/24/2017 12:22:00 02/24/2017 13:15:00 DIS Emergency NORRIS SPAULDING [facility] ER FEVER/COUGH/N/V [id number] 07/28/2016 12:44:00 07/28/2016 13:46:00 DIS Emergency JASSON, NORRIS OLIVERIO [facility] ER R FOOT PAIN [id number] 02/03/2016 17:01:00 02/03/2016 18:18:00 DIS Outpatient MARIA TERESA DUENAS [facility] ER SPIDER BITE [id number] 11/13/2015 10:23:00 11/13/2015 13:55:00 DIS Emergency MARIA TERESA DUENAS [facility] VOMITING BLOOD [id number] 10/24/2013 17:03:00 10/24/2013 19:31:00 DIS Emergency SCOTT MARTINEZ APRN [facility] ER DENTAL SWELLING
--- NOTE | 2018-08-11 09:20 | ED EENT ---
History of Present Illness General Chief Complaint: Dental Problems/Pain Stated Complaint: MOUTH SWELLING Nursing Triage Note: pt amb to rm 10 with complaint of mouth swelling. states has a tooth that needs to be pulled but is too infected. has been on amoxicillin and penicillin. Source: patient Exam Limitations: no limitations History of Present Illness Date Seen by Provider: Aug 11, 2018 Time Seen by Provider: 09:05 Initial Comments This 22-year-old young man presents to the emergency room with complaints of dental pain and swelling from a decayed and fractured tooth on the lower left jaw. He has been on amoxicillin and is now on penicillin. He is having difficulty finding someone to extract his tooth or performed root canal given his lack of insurance and ability to pay huynh. He is afebrile and has no signs or symptoms of sepsis. He is taking Tylenol and ibuprofen at home for pain. Allergies and Home Medications Allergies Coded Allergies: Bhavin Known Allergies (Verified Allergy, Unknown, 06/16/06) Home Medications Cephalexin 500 Mg Tablet, 500 MG PO QID Prescribed by: SHA OGDEN on 04/24/17 184 Clindamycin HCl 300 Mg Capsule, 300 MG PO QID Prescribed by: PEÑA HERNÁNDEZ on 08/11/18 09 Tramadol HCl 50 Mg Tablet, 50 MG PO QID PRN for PAIN-MODERATE TO SEVERE Prescribed by: PEÑA HERNÁNDEZ on 08/11/18 09 Patient Home Medication List Home Medication List Reviewed: Yes Review of Systems Review of Systems Constitutional: no symptoms reported Eyes: No Symptoms Reported Ears: No Symptoms Reported Nose: no symptoms reported Mouth: see HPI Throat: no symptoms reported Respiratory: no symptoms reported Cardiovascular: no symptoms reported Gastrointestinal: no symptoms reported Musculoskeletal: no symptoms reported Skin: no symptoms reported Neurological: No Symptoms Reported Hematologic/Lymphatic: No Symptoms Reported Past Sdougcs-Hfwvln-Xxdtva Hx Past Med/Social Hx: Reviewed and Corrections made Patient Social History Alcohol Use: Denies Use Number of Drinks Today: GG Alcohol Beverage of Choice: Whiskey Recreational Drug Use: No Smoking Status: Current Everyday Smoker Type Used: Cigarettes 2nd Hand Smoke Exposure: No Recent Foreign Travel: No Contact w/Someone Who Travel: No Recent Infectious Disease Expo: No Recent Hopitalizations: No Immunizations Up To Date Tetanus Booster (TDap): Less than 5yrs Seasonal Allergies Seasonal Allergies: No Past Medical History Surgeries: Yes (mouth surgery to remove blood clot) Respiratory: No Cardiac: No Neurological: No Reproductive Disorders: No Sexually Transmitted Disease: No Genitourinary: No Gastrointestinal: No Musculoskeletal: No Endocrine: No Loss of Vision: Denies Hearing Impairment: Denies Cancer: No Psychosocial: Yes ADD/ADHD Integumentary: No Blood Disorders: No Family Medical History Asthma G8 BROTHER Cardiovascular disease 19 MOTHER (neurocardiogenic syncope) No Family History of: Cataracts No Pertinent Family Hx Physical Exam Vital Signs Vital Signs - First Documented 08/11/18 08:54 Temp 97.5 Pulse 69 Resp 16 B/P (MAP) 136/88 (104) Pulse Ox 100 O2 Delivery Room Air Height, Weight, BMI Height: 6'0" Weight: 140lbs. 8oz. 63.279989hp; 17.85 BMI Method:Stated General Appearance: WD/WN, no apparent distress Eyes: bilateral eye normal inspection, bilateral eye PERRL, bilateral eye EOMI Ears: bilateral ear auricle normal, bilateral ear canal normal, bilateral ear TM normal Nose: normal inspection Mouth/Throat: pharynx normal, other (numerous teeth with severe decay and caries. There is a generalized swelling on the lateral aspect of the left jaw with no overt abscess present. 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 nml as tested, no motor/sensory deficits, alert, normal mood/affect, oriented x 3 Skin: normal color, warm/dry Procedures/Interventions Suture Size: 4-0 Progress/Results/Core Measures Results/Orders My Orders Orders - PEÑA PRECIADO MD Clindamycin Injection (Cleocin Injection (08/11/18 09:30) Medications Given in ED Current Medications Medications Dose Ordered Sig/Whit Route Start Time Stop Time Status Last Admin Dose Admin Clindamycin Phosphate 600 mg ONCE ONCE IM 08/11/18 09:30 08/11/18 09:31 DC 08/11/18 09:54 600 MG Vital Signs/I&O 08/11/18 08/11/18 08:54 10:21 Temp 97.5 97.5 Pulse 69 69 Resp 16 16 B/P (MAP) 136/88 (104) 136/88 (104) Pulse Ox 100 100 O2 Delivery Room Air Blood Pressure Mean: 104 Progress Progress Note : Progress Note There was significant swelling on the lateral aspect of the left jaw but no definite abscess. I offered to empirically incise this area and attempt to drain and potential abscess. Patient declined this therapy. He would like to try an alternative antibiotic and try to get in with Dr. Frost for someone else who is willing to extract the tooth. He was given an injection of clindamycin in the ER followed by a prescription. Ultram was provided for further pain re lief. Departure Impression Primary Impression: Dental abscess Additional Impressions: Dental decay Pain, dental Disposition: 01 HOME, SELF-CARE Condition: Stable Departure-Patient Inst. Decision time for Depature: 09:15 Referrals: NO,LOCAL PHYSICIAN (PCP/Family) Primary Care Physician Patient Instructions: Tooth Abscess (DC), Dental Pain Add. Discharge Instructions: Complete your antibiotics as prescribed. Gently brush your teeth twice daily with a soft bristle toothbrush. You may take a combination of ibuprofen up to 600 mg every 6 hours and/or Tylenol (acetaminophen) up to 1000 mg every 6 hours as needed for pain. For pain not controlled by gfjq-ncx-xwtzjfe medications, you may add Ultram (tramadol) as prescribed. Follow-up with a dentist or oral surgeon as soon as possible to have a root canal or dental extraction. See contact information for Dr. Frost below. You might also try the [facility] dental school in [place]. Return to the emergency room if you have worsening symptoms, especially if you develop persistent fevers over 100, intensifying swelling, etc. All discharge instructions reviewed with patient and/or family. Voiced understanding. Scripts Tramadol HCl (Ultram) 50 Mg Tablet 50 MG PO QID PRN for PAIN-MODERATE TO SEVERE, #20 TAB Prov: PEÑA PRECIADO MD 08/11/18 Clindamycin HCl (Clindamycin HCl) 300 Mg Capsule 300 MG PO QID, #40 CAP Prov: PEÑA PRECIADO MD 08/11/18 PEÑA PRECIADO MD Aug 11, 2018 09:20
[2018-08-11] MEDS ORDERED: CLIN300C11 PO (09:26)
[2018-08-11] MEDS ORDERED: TRAM-42 PO (09:26)
[2018-08-11] MEDS ORDERED: CLINDAMYCIN 600 MG/4ML (CLEOCIN) VIAL IM ONE (09:30)
[2018-08-11 10:21] VITALS: BP 136/88
== END 2018-08-11 10:21 | disposition home or self-care (01) ==
LOC: EDUNIT# 08:41 → ER 08:42
DX: K04.7 Periapical abscess without sinus (principal); K02.9 Dental caries, unspecified; F90.9 Attention-deficit hyperactivity disorder, unspecified type; F17.210 Nicotine dependence, cigarettes, uncomplicated; Z82.49 Family history of ischemic heart disease and other diseases of the circulatory system
CPT/HCPCS: 99284

== ENCOUNTER 2018-08-23 07:33 | Emergency (ER) | payer SELFPAY ==
[~2018-08-23] VITALS: Ht 182.9 cm; Wt 63.7 kg
[~2018-08-23 07:33] MED LIST changes: +CLIN300C11 PO; +TRAM-42 PO
[2018-08-23 07:58] LABS: BASOPHILS % (AUTO) 0 % (0-10); EOSINOPHILS % (AUTO) 0 % (0-10); HEMATOCRIT 44 % (40-54); HEMOGLOBIN 15.5 G/DL (13.3-17.7); LYMPHOCYTES % (AUTO) 17 % (12-44); MEAN CORPUSCULAR HEMOGLOBIN 31 PG (25-34); MEAN CORPUSCULAR HGB CONC 36 G/DL (32-36); MEAN CORPUSCULAR VOLUME 88 FL (80-99); MEAN PLATELET VOLUME 8.8 FL (7.4-10.4); MONOCYTES # (AUTO) 0.2 X 10^3 (0.0-1.0); MONOCYTES % (AUTO) 4 % (0-12); NEUTROPHILS # (AUTO) 4.8 X 10^3 (1.8-7.8); NEUTROPHILS % (AUTO) 79 % (42-75); PLATELET COUNT 280 10^3/uL (130-400); RED CELL DISTRIBUTION WIDTH 12.5 % (10.0-14.5); WHITE BLOOD COUNT 6.1 10^3/uL (4.3-11.0)
[2018-08-23] MEDS ORDERED: FAMOTIDINE 20MG/2ML IV (PEPCID) IVP ONE (08:00)
[2018-08-23] MEDS ORDERED: ONDANSETRON 4 MG/2 ML (SDV) Z0FRAN IVP ONE (08:00)
[2018-08-23 08:11] LABS: PROTHROMBIN TIME PATIENT 13.8 SEC (12.2-14.7)
[2018-08-23] MEDS ORDERED: LACTATED RINGERS 1,000 ML IV ONE (08:11)
[2018-08-23 08:23] LABS: ALANINE AMINOTRANSFERASE 24 U/L (0-55); ALBUMIN 4.8 GM/DL (3.2-4.5); ALKALINE PHOSPHATASE 85 U/L (40-136); BILIRUBIN,TOTAL 0.3 MG/DL (0.1-1.0); BUN/CREATININE RATIO 9; CALCIUM 9.6 MG/DL (8.5-10.1); CARBON DIOXIDE 22 MMOL/L (21-32); CHLORIDE 105 MMOL/L (98-107); CREATININE SERUM 0.94 MG/DL (0.60-1.30); GFR ESTIMATED > 60; GLUCOSE 112 MG/DL (70-105); LIPASE 5 U/L (8-78); POTASSIUM 4.2 MMOL/L (3.6-5.0); SODIUM 139 MMOL/L (135-145); TOTAL PROTEIN 8.2 GM/DL (6.4-8.2)
[2018-08-23 08:51] LABS: BILIRUBIN,URINE NEGATIVE (NEGATIVE); CLARITY,URINE CLEAR; COLOR,URINE YELLOW; GLUCOSE, URINE (UA) NEGATIVE (NEGATIVE); KETONES,URINE NEGATIVE (NEGATIVE); LEUKOCYTE ESTERASE ,URINE NEGATIVE (NEGATIVE); NITRITE,URINE NEGATIVE (NEGATIVE); PH,URINE 6.5 (5-9); PROTEIN,URINE NEGATIVE (NEGATIVE); UROBILINOGEN,URINE NORMAL (NORMAL)
[2018-08-23 08:59] LABS: BACTERIA,URINE NEGATIVE /HPF; SQUAMOUS EPITHELIAL CELL,UR RARE /HPF
[2018-08-23] MEDS ORDERED: LIDOCAINE 2% VISCOUS 15 ML UDC PO ONE (09:00)
[2018-08-23] MEDS ORDERED: ANTACID SUSP 30 ML UDC (MYLANTA) PO ONE (09:00)
[2018-08-23 09:04] LABS: AMPHETAMINE SCREEN, URINE POSITIVE (NEGATIVE); BARBITURATE SCREEN URINE NEGATIVE (NEGATIVE); BENZODIAZEPINES SCREEN URINE NEGATIVE (NEGATIVE); CANNABINOID SCREEN, URINE POSITIVE (NEGATIVE); COCAINE SCREEN URINE NEGATIVE (NEGATIVE); METHADONE STAT NEGATIVE (NEGATIVE); METHAMPHETAMINE SCREEN URINE S POSITIVE (NEGATIVE); OPIATE SCREEN URINE NEGATIVE (NEGATIVE); OXYCODONE STAT NEGATIVE (NEGATIVE); PROPOXYPHENE STAT NEGATIVE (NEGATIVE); TRICYCLIC ANTIDEPRESSANTS SCRE NEGATIVE (NEGATIVE)
--- NOTE | 2018-08-23 09:24 | Diagnostic Imaging Report ---
PATIENT HISTORY: Hematemesis, left-sided chest pain. TECHNIQUE: 2 views of the chest COMPARISON: None FINDINGS: Lung volumes are normal. No focal consolidation is seen. There is no pleural effusion or pneumothorax. The cardiomediastinal silhouette is normal in size and contour. IMPRESSION: No acute pulmonary abnormality seen. Dictated by: Dictated on workstation # [id number]
--- NOTE | 2018-08-23 09:24 | Diagnostic Imaging Report ---
INDICATION: Hematemesis, left-sided chest pain. TECHNIQUE: Upright, supine frontal views of the abdomen. COMPARISON: None FINDINGS: Bowel loops are nondistended. No large collection of free air is seen. No acute osseous abnormality is seen. IMPRESSION: No bowel obstruction or large collection of free air seen. Dictated by: Dictated on workstation # [id number]
[2018-08-23] MEDS ORDERED: ONDA4TAB11 SL (10:20)
[2018-08-23] MEDS ORDERED: OMEP20CA12 PO (10:20)
--- NOTE | 2018-08-23 10:20 | ED GI ---
General Chief Complaint: Abdominal/GI Problems Stated Complaint: VOMITING BLOOD Nursing Triage Note: Pt ambulates to Rm 7 with complaints of vomiting up blood at 0600 after attempting to drink water. Pt states he's had a tooth infection and started Abx for that 2 weeks ago. Pt denies any type of pain at this time. Source of Information: Patient, Family Exam Limitations: No Limitations History of Present Illness Date Seen by Provider: Aug 23, 2018 Time Seen by Provider: 07:48 Initial Comments This 22-year-old young man presents to the emergency room with complaint of vomiting blood. He woke this morning feeling hot and flushed. He drank a bottle of water and began to gag. He then threw the water up and noted red flecks in the emesis. He has had significant epigastric and lower chest pain associated with this nausea and vomiting. He reports drinking one or 2 days out of the week and drinking about 6 beers per week. He reports not drinking alcohol in the past 2 days. He has had some more minor symptoms over the past 3 days including discomfort in the epigastric area radiating up through the chest. He has been nauseated after eating. Patient smokes tobacco but denies it be illicit drug use. He had a similar episode when he was 20 and had hematemesis related to binge drinking. He is also presently being treated with clindamycin for a dental abscess. He is feeling rather anxious this morning. He states he feels like he cannot catch his breath. He is actually moving air well and oxygen saturations are at or near 100 percent on room air. Allergies and Home Medications Allergies Coded Allergies: NKANo Known Allergies (Verified Allergy, Unknown, 06/16/06) Home Medications Cephalexin 500 Mg Tablet, 500 MG PO QID Prescribed by: SHA OGDEN on 04/24/17 1842 Clindamycin HCl 300 Mg Capsule, 300 MG PO QID Prescribed by: PEÑA HERNÁNDEZ on 08/11/18 0926 Omeprazole 20 Mg Capsule.dr, 20 MG PO BID Prescribed by: PEÑA HERNÁNDEZ on 08/23/18 1020 Ondansetron 4 Mg Tab.rapdis, 4 MG SL Q4H Prescribed by: PEÑA HERNÁNDEZ on 08/23/18 1020 Tramadol HCl 50 Mg Tablet, 50 MG PO QID PRN for PAIN-MODERATE TO SEVERE Prescribed by: PEÑA HERNÁNDEZ on 08/11/18 0926 Patient Home Medication List Home Medication List Reviewed: Yes Review of Systems Review of Systems Constitutional: no symptoms reported EENTM: No Symptoms Reported Respiratory: See HPI, Other (Pain with inspiration) Cardiovascular: Other (Tachycardia) Gastrointestinal: See HPI Genitourinary: No Symptoms Reported Musculoskeletal: no symptoms reported Skin: no symptoms reported Psychiatric/Neurological: See HPI Endocrine: No Symptoms Reported Hematologic/Lymphatic: No Symptoms Reported Past Yxtxtkz-[id number]-Wcxrju Hx Past Med/Social Hx: Reviewed and Corrections made Patient Social History Alcohol Use: Occasionally Uses Number of Drinks Today: GG Alcohol Beverage of Choice: Whiskey Recreational Drug Use: Yes Drug of Choice: Marijuana Smoking Status: Current Everyday Smoker Type Used: Cigarettes 2nd Hand Smoke Exposure: No Recent Foreign Travel: No Contact w/Someone Who Travel: No Recent Infectious Disease Expo: No Recent Hopitalizations: No Immunizations Up To Date Tetanus Booster (TDap): Less than 5yrs Seasonal Allergies Seasonal Allergies: No Past Medical History Surgeries: Yes (mouth surgery to remove blood clot) Respiratory: No Cardiac: No Neurological: No Reproductive Disorders: No Sexually Transmitted Disease: No Genitourinary: No Gastrointestinal: No Musculoskeletal: No Endocrine: No HEENT: No Loss of Vision: Denies Hearing Impairment: Denies Cancer: No Psychosocial: Yes ADD/ADHD Integumentary: No Blood Disorders: No Family Medical History Asthma G8 BROTHER Cardiovascular disease 19 MOTHER (neurocardiogenic syncope) No Family History of: Cataracts No Pertinent Family Hx Physical Exam Vital Signs Vital Signs - First Documented 08/23/18 08/23/18 07:40 10:26 Temp 97.0 Pulse 100 Resp 18 B/P (MAP) 132/97 (109) Pulse Ox 99 O2 Delivery Room Air Capillary Refill : Less Than 3 Seconds Height/Weight/BMI Height: 6'0" Weight: 140lbs. 8oz. 63.576904tm; 17.85 BMI Method:Stated General Appearance: WD/WN, mild distress (Anxious) HEENT: PERRL/EOMI, normal ENT inspection, other (Oropharynx very dry) Neck: normal inspection Respiratory: lungs clear, normal breath sounds, no respiratory distress, no accessory muscle use Cardiovascular: no edema, no murmur, tachycardia Gastrointestinal: normal bowel sounds, soft, tenderness (Left upper quadrant) Extremities: normal inspection, no pedal edema Neurologic/Psychiatric: fisherman helper II-XII nml as tested, no motor/sensory deficits, alert, oriented x 3, other (Anxious) Skin: normal color, warm/dry Procedures/Interventions Suture Size: 4-0 Progress/Results/Core Measures Results/Orders Lab Results Laboratory Tests Test 08/23/18 07:50 08/23/18 08:45 Range/Units White Blood Count 6.1 4.3-11.0 10^3/uL Red Blood Count 4.96 4.35-5.85 10^6/uL Hemoglobin 15.5 13.3-17.7 G/DL Hematocrit 44 40-54 % Mean Corpuscular Volume 88 80-99 FL Mean Corpuscular Hemoglobin 31 25-34 PG Mean Corpuscular Hemoglobin Concent 36 32-36 G/DL Red Cell Distribution Width 12.5 10.0-14.5 % Platelet Count 280 130-400 10^3/uL Mean Platelet Volume 8.8 7.4-10.4 FL Neutrophils (%) (Auto) 79 H 42-75 % Lymphocytes (%) (Auto) 17 12-44 % Monocytes (%) (Auto) 4 0-12 % Eosinophils (%) (Auto) 0 0-10 % Basophils (%) (Auto) 0 0-10 % Neutrophils # (Auto) 4.8 1.8-7.8 X 10^3 Lymphocytes # (Auto) 1.0 1.0-4.0 X 10^3 Monocytes # (Auto) 0.2 0.0-1.0 X 10^3 Eosinophils # (Auto) 0.0 0.0-0.3 10^3/uL Basophils # (Auto) 0.0 0.0-0.1 10^3/uL Prothrombin Time 13.8 12.2-14.7 SEC INR Comment 1.0 0.8-1.4 Activated Partial Thromboplast Time 29 24-35 SEC Sodium Level 139 135-145 MMOL/L Potassium Level 4.2 3.6-5.0 MMOL/L Chloride Level 105 98-107 MMOL/L Carbon Dioxide Level 22 21-32 MMOL/L Anion Gap 12 5-14 MMOL/L Blood Urea Nitrogen 8 7-18 MG/DL Creatinine 0.94 0.60-1.30 MG/DL Estimat Glomerular Filtration Rate > 60 BUN/Creatinine Ratio 9 Glucose Level 112 H 70-105 MG/DL Calcium Level 9.6 8.5-10.1 MG/DL Corrected Calcium 8.5-10.1 MG/DL Total Bilirubin 0.3 0.1-1.0 MG/DL Aspartate Amino Transf (AST/SGOT) 27 5-34 U/L Alanine Aminotransferase (ALT/SGPT) 24 0-55 U/L Alkaline Phosphatase 85 40-136 U/L Total Protein 8.2 6.4-8.2 GM/DL Albumin 4.8 H 3.2-4.5 GM/DL Lipase 5 L 8-78 U/L Serum Alcohol 142 H <10 MG/DL Urine Color YELLOW Urine Clarity CLEAR Urine pH 6.5 5-9 Urine Specific [place] 1.010 L 1.016-1.022 Urine Protein NEGATIVE NEGATIVE Urine Glucose (UA) NEGATIVE NEGATIVE Urine Ketones NEGATIVE NEGATIVE Urine Nitrite NEGATIVE NEGATIVE Urine Bilirubin NEGATIVE NEGATIVE Urine Urobilinogen NORMAL NORMAL MG/DL Urine Leukocyte Esterase NEGATIVE NEGATIVE Urine RBC (Auto) NEGATIVE NEGATIVE Urine RBC NONE /HPF Urine WBC NONE /HPF Urine Squamous Epithelial Cells RARE /HPF Urine Crystals NONE /LPF Urine Bacteria NEGATIVE /HPF Urine Casts NONE /LPF Urine Mucus SMALL H /LPF Urine Culture Indicated NO Urine Opiates Screen NEGATIVE NEGATIVE Urine Oxycodone Screen NEGATIVE NEGATIVE Urine Methadone Screen NEGATIVE NEGATIVE Urine Propoxyphene Screen NEGATIVE NEGATIVE Urine Barbiturates Screen NEGATIVE NEGATIVE Ur Tricyclic Antidepressants Screen NEGATIVE NEGATIVE Urine Phencyclidine Screen NEGATIVE NEGATIVE Urine Amphetamines Screen POSITIVE H NEGATIVE Urine Methamphetamines Screen POSITIVE H NEGATIVE Urine Benzodiazepines Screen NEGATIVE NEGATIVE Urine Cocaine Screen NEGATIVE NEGATIVE Urine Cannabinoids Screen POSITIVE H NEGATIVE My Orders Orders - PEÑA PRECIADO MD Ed Iv/Invasive Line Start (08/23/18 07:47) Alcohol (08/23/18 07:47) Cbc With Automated Diff (08/23/18 07:47) Comprehensive Metabolic Panel (08/23/18 07:47) Lipase (08/23/18 07:47) Protime With Inr (08/23/18 07:47) Partial Thromboplastin Time (08/23/18 07:47) Ondansetron Injection (Zofran Injectio (08/23/18 08:00) Famotidine Injection (Pepcid Injection) (08/23/18 08:00) Ed Iv/Invasive Line Start (08/23/18 08:11) Lactated Ringers (Lr 1000 Ml Iv Solution (08/23/18 08:11) Drug Screen Stat (Urine) (08/23/18 08:11) Ua Culture If Indicated (08/23/18 08:11) Lidocaine 2% Viscous 15 Ml (Xylocaine Vi (08/23/18 09:00) Antacid Suspension (Mylanta Suspension (08/23/18 09:00) Chest Pa/Lat (2 View) (08/23/18 08:59) Abdomen, Flat & Upright/Decub (08/23/18 08:59) Medications Given in ED Current Medications Medications Dose Ordered Sig/Whit Route Start Time Stop Time Status Last Admin Dose Admin Al Hydrox/Mg Hydrox/Simethicone 30 ml ONCE ONCE PO 08/23/18 09:00 08/23/18 09:01 DC 08/23/18 09:43 30 ML Lidocaine HCl 15 ml ONCE ONCE PO 08/23/18 09:00 08/23/18 09:01 DC 08/23/18 09:43 15 ML Vital Signs/I&O 08/23/18 08/23/18 07:40 10:26 Temp 97.0 Pulse 100 86 Resp 18 18 B/P (MAP) 132/97 (109) 139/93 (108) Pulse Ox 99 O2 Delivery Room Air Room Air Blood Pressure Mean: 109 Progress Progress Note : Progress Note Workup was unremarkable except for the alcohol level and drug screen. He received Zofran and Pepcid which improved his nausea. He received 500 mL of IV fluids. Blood back up into his IV line when he got up and walked around the room. They were discontinued after 500 mL and he did not want us to start any more. Patient was confronted about his blood alcohol level and his positive drug screen. He admits to using marijuana and drinking alcohol but emphatically denies methamphetamine or amphetamine use. GI cocktail was given for his left upper quadrant pain and chest pain. This was helpful. Patient is having symptoms likely related to alcohol use and was not truthful about his alcohol use. This constitutes a substance abuse problem for which she should seek treatment. We discussed this at length. Patient's mother was included in the conversation. Diagnostic Imaging Diagonstic Imaging: Xray Plain Films/CT/US/NM/MRI: abdomen, pelvis Comments KUB and upright x-ray viewed by me and report reviewed. See report below: NAME: NUHA DAUGHERTY MED REC#: [id number] PT STATUS: REG ER : 1995 PHYSICIAN: PEÑA PRECIADO MD ADMIT DATE: 08/23/18/ER Signed Date of Exam: 08/23/18 ABDOMEN, FLAT & UPRIGHT/DECUB INDICATION: Hematemesis, left-sided chest pain. TECHNIQUE: Upright, supine frontal views of the abdomen. COMPARISON: None FINDINGS: Bowel loops are nondistended. No large collection of free air is seen. No acute osseous abnormality is seen. IMPRESSION: No bowel obstruction or large collection of free air seen. Dictated by: Dictated on workstation # [id number] Dict: 08/23/18921 Trans: 08/23/18930 Interpreted by: GALLO EVANS MD Electronically signed by: GALLO EVANS MD 08/23/18930 Diagonstic Imaging: Xray Plain Films/CT/US/NM/MRI: chest Comments Dottie x-ray viewed by me and report reviewed. See report below: NAME: NUHA DAUGHERTY MED REC#: [id number] PT STATUS: REG ER : 1995 PHYSICIAN: PEÑA PRECIADO MD ADMIT DATE: 08/23/18/ER Signed Date of Exam: 08/23/18 CHEST PA/LAT (2 VIEW) PATIENT HISTORY: Hematemesis, left-sided chest pain. TECHNIQUE: 2 views of the chest COMPARISON: None FINDINGS: Lung volumes are normal. No focal consolidation is seen. There is no pleural effusion or pneumothorax. The cardiomediastinal silhouette is normal in size and contour. IMPRESSION: No acute pulmonary abnormality seen. Dictated by: Dictated on workstation # [id number] Dict: 08/23/18919 Trans: 08/23/18930 Interpreted by: GALLO EVANS MD Electronically signed by: GALLO EVANS MD 08/23/18930 Departure Impression Primary Impression: Left upper quadrant pain Additional Impressions: Polysubstance abuse Nausea & vomiting Qualified Codes: R11.2 - Nausea with vomiting, unspecified Dental abscess Disposition: 01 HOME, SELF-CARE Condition: Improved Departure-Patient Inst. Decision time for Depature: 10:16 Referrals: [facility] – [place] NO,LOCAL PHYSICIAN (PCP) Primary Care Physician Patient Instructions: ALCOHOL AND SUBSTANCE ABUSE, Acute Abdomen (Belly Pain), Alcohol Withdrawal Add. Discharge Instructions: Drink plenty of clear liquids. Avoid alcohol. Gradually advance your diet with small quantities of bland food as tolerated. Please be advised that abruptly stopping alcohol may put you at risk for dange yvette alcohol withdrawal and possibly life-threatening seizures. If you start experiencing alcohol withdrawal symptoms after quitting alcohol, return to the emergency room or call 911. See the information attached regarding alcohol withdrawal. Please establish care with a primary care provider soon as possible. If you seek care at the [facility] you may also seek services for substance abuse counseling. Return to emergency room if you have any other concerns or worsening symptoms. Use omeprazole twice daily as prescribed for at least a month. You may use Zofran (ondansetron) as prescribed for nausea and vomiting. Complete your antibiotics as prescribed and seek care from a dentist as soon as possible. All discharge instructions reviewed with patient and/or family. Voiced understanding. Scripts Ondansetron (Ondansetron Odt) 4 Mg Tab.rapdis 4 MG SL Q4H, #10 TAB Prov: PEÑA PRECIADO MD 08/23/18 Omeprazole (Omeprazole) 20 Mg Capsule. 20 MG PO BID, #60 CAP Prov: PEÑA PRECIADO MD 08/23/18 Work/School Note: Work Release Form Date Seen in the Emergency Department: Aug 23, 2018 Return to Work: Aug 24, 2018 Restrictions: No Restrictions PEÑA PRECIADO MD Aug 23, 2018 10:20
[2018-08-23 10:26] VITALS: BP 139/93
== END 2018-08-23 10:26 | disposition home or self-care (01) ==
LOC: EDUNIT# 07:33 → ER 07:34
DX: F12.10 Cannabis abuse, uncomplicated (principal); F17.210 Nicotine dependence, cigarettes, uncomplicated; K04.7 Periapical abscess without sinus; R11.2 Nausea with vomiting, unspecified; R10.32 Left lower quadrant pain; F90.9 Attention-deficit hyperactivity disorder, unspecified type; Z82.49 Family history of ischemic heart disease and other diseases of the circulatory system
CPT/HCPCS: 36415; 71046; 74019; 80053; 80306; 80320; 81000; 83690; 85025; 85610; 85730

== ENCOUNTER → 2019-10-06 | Outpatient (CLI) | payer BC ==
[~2019-10-06] MED LIST changes: +OMEP20CA18 PO; +OMEP40CA27 PO; -OMEP40CA36 PO; +ONDA4TAB11 SL
--- NOTE | 2019-10-06 09:53 | Diagnostic Imaging Report ---
EXAMINATION: Magnetic resonance imaging of the right knee without intravenous contrast DATE: October 06, 2019. COMPARISON: None. INDICATION: 24-year-old male, right knee pain. Injury. TECHNIQUE: Multiplanar, multisequence non contrast enhanced MR imaging was accomplished. FINDINGS: There are motion limitations of the exam. MENISCI: The medial meniscus is intact. The lateral meniscus is intact. LIGAMENTS AND TENDONS: The anterior and posterior cruciate ligaments are intact. The medial collateral ligament is intact. The iliotibial band, mid third lateral capsular ligament, fibular collateral ligament, biceps femoris tendon and conjoined tendon are intact. The quadriceps tendon and patella ligament are intact. JOINT: The articular cartilage surfaces are intact. There is a small knee joint effusion. There is no identified intra-articular body or prominent synovitis. BONE: There is prominent marrow edema in the anterior aspect of the proximal tibial epiphysis both medially and laterally. There is also marrow edema in the posterior aspect of the lateral portion of the proximal tibial metaphysis and also medially. There is also edema-like signal in the proximal fibula. There is no identified fracture line. There are no pathognomonic signal changes of osteonecrosis. There is also air edema in the anterior aspect of the medial femoral condyle. BURSAE AND SOFT TISSUES: There is a small Gallegos's cyst. IMPRESSION: 1. Prominent marrow edema in the proximal tibia both anteriorly and posteriorly and medially and laterally as well as in the anterior aspect of the medial femoral condyle and proximal fibula without identified fracture line. These most likely relate to multiple bone contusions. 2. Intact menisci and cruciate ligaments. Additional ligaments and tendons are intact. 3. No identified cartilage defect. Small to moderate knee joint effusion. 4. Limitations of the study relating to fairly prominent motion artifact. Dictated by: Dictated on workstation # [id number]
== END ==
LOC: RAD 08:14
PROVIDERS: ATTEND Nurse Practitioner
DX: S86.111A Strain of other muscle(s) and tendon(s) of posterior muscle group at lower leg level, right leg, initial encounter (principal); S80.01XA Contusion of right knee, initial encounter
CPT/HCPCS: 73721

== ENCOUNTER 2021-09-04 12:26 | Emergency (ER) | payer SELFPAY ==
[~2021-09-04] VITALS: Ht 182 cm; Wt 61.2 kg
[~2021-09-04 12:26] MED LIST changes: +CLIN-144 PO; -CLIN300C11 PO; -OMEP40CA27 PO; +OMEP40CA6 PO; -SULF1TAB35 PO; +SULF1TAB38 PO
[2021-09-04 13:15] VITALS: BP 116/82
== END 2021-09-04 13:27 | disposition home or self-care (01) ==
LOC: EDUNIT# 12:26 → ER 12:28
DX: R61 Generalized hyperhidrosis (principal); R52 Pain, unspecified; R11.0 Nausea; R68.83 Chills (without fever); R53.1 Weakness
CPT/HCPCS: 87636; 99283